=== PATIENT | male | born 2000 | race African-American/Black ===

== ENCOUNTER 2021-08-06 10:46 | Emergency (ER) | payer OTHER, SELFPAY ==
--- NOTE | 2021-08-06 11:50 | ED.MALEGU ---
HPI - Male Genitourinary General Chief complaint: Urogenital-Male Stated complaint: STD Time Seen by Provider: 08/06/21 11:50 Source: patient Mode of arrival: ambulatory Limitations: no limitations History of Present Illness HPI Narrative: 21-year-old male presented for concern of STD. He states his girlfriend was recently tested and was negative, but he states I need to be tested. Currently denies any urethral discharge, lesions, or pain with urinating. Patient declines treatment at this time. Related Data Allergies Allergy/AdvReac Type Severity Reaction Status Date / Time No Known Allergies Allergy Verified 08/06/21 10:56 Review of Systems Review of Systems: CONSTITUTIONAL: Denies body aches, fever, chills, or sweats. CARDIOVASCULAR: Denies chest pain, palpitations, or edema. RESPIRATORY: Denies cough or dyspnea. GASTROINTESTINAL: Denies abdominal pain, nausea, vomiting, or diarrhea. GENITOURINARY: Denies urethral discharge, dysuria, frequency, urgency, hematuria, flank pain SKIN: Denies rash, itching, or wounds. MUSCULOSKELETAL: Denies back pain or myalgia. PMFSH Comments At time of signature, I have reviewed and agree with nursing past medical, surgical, social and family history unless otherwise noted. Please see nursing chart for further information. There is no relevant family history pertinent to the presenting complaint Exam Narrative: GENERAL: Well-appearing and in no acute distress. HEAD: Normocephalic EYES: EOMI. . ENT: Mucous membranes pink and moist. NECK: Normal AROM. Supple. CHEST: No respiratory distress. Clear to auscultation. HEART: Regular rate and rhythm. ABDOMEN: Soft, nontender, nondistended, normal active bowel sounds. No CVA tenderness MUSCULOSKELETAL: No bony tenderness. SKIN: Warm, dry, no rash. NEURO: No focal deficits. Alert and oriented x3. Gait steady. PSYCH: Normal affect. Course Course Emergency Course: Pt is advised we will send urine for gonorrhea, chlamydia, and trich, pt understands and agrees to treatment plan. Declines antibiotic treatment at this time and is aware he will need to return for antibiotic if positive. Anticipatory guidance given. Patient agrees to follow-up as directed and is aware of reasons to seek care at the emergency department. Portions of this record may have been created with voice recognition software Level of Care: Express Care Visit Vital Signs Vital signs: Reviewed MDM - Male Genitourinary MDM Narrative Medical decision making narrative: Exam findings show no acute concerns; patient is non-toxic appearing and is in no distress. Patient is appropriate for outpatient treatment and follow-up. Lab Data Labs: Lab Results 08/06/21 08/06/21 Range/Units 11:05 11:06 C.trachomatis RNA (TMA) Pending N.gonorrhoeae RNA (TMA) Pending T. vaginalis Amp RNA Pending Discharge Plan Discharge Clinical Impression: Concern about STD in male without diagnosis Patient Disposition: Home, Self-Care Condition: Stable Instructions: Antibiotic Form, Sexually Transmitted Diseases (ED), Safe Sex Practices (ED) Additional Instructions: Your urine sample has been sent off to test for gonorrhea, chlamydia, and trichomonas infections. You will be called if any of your tests come back positive. These tests can take up to 5-7 days to come back. If your tests come back positive you will need to return for antibiotic treatment, and you will need to notify any partners that you have so they can be tested and treated. To avoid reinfection, you are advised to abstain from sexual intercourse until you and sexual partners have been treated (ie, after completing the 7-day antibiotic regimen, and any symptoms have resolved. If your tests come back negative and you begin experiencing symptoms, please follow-up with your PCP or urologist for further evaluation and treatment. If your symptoms worsen to include fever, abdominal pain, or back
== END 2021-08-06 12:04 | disposition home or self-care (01) ==
PROVIDERS: Emergency Provider Nurse Practitioner Family
DX: Z11.3 Encounter for screening for infections with a predominantly sexual mode of transmission (principal)
CPT/HCPCS: 87491; 87591; 87661; 99213; G0463

== ENCOUNTER 2023-05-11 19:54 | Emergency (ER) | payer OTHER, SELFPAY ==
--- NOTE | ~2023-05-11 | CT_ITS ---
EXAMINATION: CT abdomen pelvis w con DATE: 05/11/2023 23:01 INDICATION: Abdominal pain. TECHNIQUE: Computed tomography (CT) of the abdomen and pelvis was performed with 100 mL Omnipaque 350 intravenous contrast. Automated exposure control and iterative reconstruction technique were employe d. The dose-length product was 373.46 mGy-cm. COMPARISON: None. FINDINGS: The visualized portions of the lung bases are clear without pneumonia or pleural effusion. The heart size is normal. No pericardial effusion. The liver, gallbladder, spleen, pancreas, adrenal glands, and right kidney are normal. There is a 19 mm cyst in left kidney. There are no dilated loops of bowel. The appendix is normal. There are no pathologically enlarged lymph nodes. There is trace p elvic ascites. There is mild lumbar spondylosis. IMPRESSION: 1. No etiology for the patient's symptoms. Reviewed, dictated and finalized at location E. [facility]
[2023-05-11 20:00] VITALS: BP 138/85; PULSE 81; RESP 17; TEMP 36.7; O2SAT 100
[2023-05-11 20:14] LABS: Basophils Percent Auto 0.4 % (0.2-1.2); Eosinophils Absolute Auto 0.1 K/mm3 (0-0.3); Eosinophils Percent Auto 1.6 % (0-4.4); Hematocrit 28.4 % (42.0-52.0); Hemoglobin 8.7 g/dL (14.0-18.0); Immature Granulocyte Absolute 0.01 K/mm3 (0.00-0.031); Immature Granulocyte Percent A 0.1 % (0-0.5); Lymphocytes Absolute Auto 2.12 K/mm3 (0.9-3.2); Lymphocytes Percent Auto 30.6 % (18.3-44.2); Mean Corpuscular HGB Conc 30.6 g/dl (32-36); Mean Corpuscular Hemoglobin 23.6 pg (26-34); Monocytes Absolute Auto 0.6 K/mm3 (0.1-0.6); Monocytes Percent Auto 8.1 % (2.6-8.5); Neutrophils Absolute Auto 4.1 K/mm3 (1.3-6.7); Neutrophils Percent Auto 59.2 % (45.5-73.1); Platelet Count Result 316 k/mm3 (150-375); Red Blood Count 3.69 M/mm3 (4.6-6.20); Red Cell Distribution Width 15.4 % (11.5-14.5); White Blood Count 6.9 K/mm3 (4.5-10.0)
[2023-05-11 20:22] LABS: Appearance Urine Clear (Clear); Bilirubin Urine Negative (Negative); Blood Urine Negative (Negative); Color Urine Yellow (Yellow); Glucose Urine UA Negative (Negative); Ketones Urine Trace mg/dL (Negative); Leukocyte Esterase Ur Negative LEU/UL (Negative); Nitrate Urine Negative (Negative); Protein Urine Negative (Negative); Specific Grav Ur 1.023 (1.001-1.035)
[2023-05-11 20:24] LABS: Alanine Aminotransferase 18 U/L (6-50); Albumin Level 4.3 g/dL (3.5-5.1); Alkaline Phosphatase 68 U/L (38-126); Anion Gap 9 mmol/L (8-16); Aspartate Amino Transferase 34 U/L (17-59); Bilirubin,Total 0.5 mg/dL (0.2-1.3); Blood Urea Nitrogen 11 mg/dL (9-20); Calcium 9.1 mg/dL (8.4-10.2); Carbon Dioxide 27 mmol/L (22-30); Chloride 104 mmol/L (98-107); Estimated CRCL calculation 129 ml/min; Estimated Glomerular Filt Rate > 60; Glucose 111 mg/dL (65-110); Lipase 127 U/L (23-300); Potassium 3.4 mmol/L (3.4-5.0); Sodium 140 mmol/L (137-145)
[2023-05-11 20:41] LABS: Add Urine Microscopic? NO
[2023-05-11 21:37] VITALS: BP 132/91; PULSE 67; RESP 16; O2SAT 100
--- NOTE | 2023-05-11 23:00 | ED.GENADULT ---
HPI - General Adult General Chief complaint: Abdominal Pain Stated complaint: abd pain Time Seen by Provider: 05/11/23 21:59 History of Present Illness HPI narrative: Patient a 23-year-old gentleman who presents the emergency department with chief complaint of abdominal pain. Patient reports that for over a month he has been having pain in his abdomen. The patient states that the pain is a aching-like pain the patient reports the pain is doing better since he is arrived in the emergency department he also reports that he has had some black stools patient denies bright red blood per rectum. Patient reports he is on no blood thinners denies being on aspirin patient states he had a normal colored bowel movement today. Related Data Allergies Allergy/AdvReac Type Severity Reaction Status Date / Time No Known Allergies Allergy Verified 05/11/23 19:54 Review of Systems Review of Systems: A 10 system review of systems was completed on the patient and is negative except for what is stated in the HPI. Nursing and ancillary documentation was reviewed. Exam Narrative: GENERAL: Well-appearing, well-nourished, and in no acute distress. HEAD: Normocephalic, atraumatic. EYES: PERRLA and EOMI. ENT: Nares clear, no rhinorrhea or epistaxis. Mucous membranes moist. NECK: Supple. CHEST: Clear to auscultation. No respiratory distress. HEART: Regular rate and rhythm. No murmur heard. Normal peripheral pulses. ABDOMEN: Soft, nontender, nondistended, normal active bowel sounds. : Guaiac negative stool EXTREMITIES: Normal range of motion. No edema. SKIN: Warm, dry, no rash. NEURO: No focal deficits. Alert and oriented x3. PSYCH: Normal mood and affect. Course Vital Signs Vital signs: Vital Signs Temperature 36.7 C 05/11/23 20:00 Pulse Rate 81 05/11/23 20:00 Respiratory Rate 17 05/11/23 20:00 Blood Pressure 138/85 05/11/23 20:00 Pulse Oximetry 100 05/11/23 20:00 Oxygen Delivery Room Air 05/11/23 20:00 Temperature 36.7 C 05/11/23 20:00 Pulse Rate 74 05/11/23 23:48 Respiratory Rate 18 05/11/23 23:48 Blood Pressure 145/86 H 05/11/23 23:48 Pulse Oximetry 100 05/11/23 23:48 Oxygen Delivery Room Air 05/11/23 20:00 Medical Decision Making MDM Narrative Medical decision making narrative: Differential diagnosis includes GI bleed, diverticulitis, colitis Laboratory studies were obtained which showed a normal white blood cell count of 6.9 hemoglobin was low at 8.7 no previous hemoglobins are in the system. Patient has a normal platelet count at 316 electrolytes are within normal limits lipase is normal Vital Signs Vital Signs: Vital Signs Temperature 36.7 C 05/11/23 20:00 Pulse Rate 81 05/11/23 20:00 Respiratory Rate 17 05/11/23 20:00 Blood Pressure 138/85 05/11/23 20:00 Pulse Oximetry 100 05/11/23 20:00 Oxygen Delivery Room Air 05/11/23 20:00 Temperature 36.7 C 05/11/23 20:00 Pulse Rate 74 05/11/23 23:48 Respiratory Rate 18 05/11/23 23:48 Blood Pressure 145/86 H 05/11/23 23:48 Pulse Oximetry 100 05/11/23 23:48 Oxygen Delivery Room Air 05/11/23 20:00 Lab Data 05/11/23 20:07 05/11/23 20:07 Labs: Lab Results 05/11/23 05/11/23 Range/Units 20:07 20:14 WBC 6.9 (4.5-10.0) K/mm3 RBC 3.69 L (4.6-6.20) M/mm3 Hgb 8.7 L (14.0-18.0) g/dL Hct 28.4 L (42.0-52.0) % MCV 77.0 L (80-100) fl MCH 23.6 L (26-34) pg MCHC 30.6 L (32-36) g/dl RDW 15.4 H (11.5-14.5) % Plt Count 316 (150-375) k/mm3 MPV 9.0 (7.4-10.4) fl Immature Gran % (Auto) 0.1 (0-0.5) % Neut % (Auto) 59.2 (45.5-73.1) % Lymph % (Auto) 30.6 (18.3-44.2) % [place] % (Auto) 8.1 (2.6-8.5) % Eos % (Auto) 1.6 (0-4.4) % Baso % (Auto) 0.4 (0.2-1.2) % Lymph # (Auto) 2.12 (0.9-3.2) K/mm3 [place] # (Auto) 0.6 (0.1-0.6) K/mm3 Eos # (Auto) 0.1 (0-0.3) K/mm3 Baso # (Auto) 0.0 (0.
[2023-05-11 23:48] VITALS: BP 145/86; PULSE 74; RESP 18; O2SAT 100
== END 2023-05-12 00:12 | disposition home or self-care (01) ==
PROVIDERS: Emergency Medicine; Emergency Provider Emergency Medicine
DX: R10.9 Unspecified abdominal pain (principal); D64.9 Anemia, unspecified; Z79.82 Long term (current) use of aspirin
CPT/HCPCS: 36415; 74177; 80053; 81003; 83690; 85025; 99284; Q9967

== ENCOUNTER 2024-03-19 00:02 | Emergency (ER) | payer BC, SELFPAY ==
[2024-03-19] VITALS (24 sets, daily range): BP systolic 129–150; BP diastolic 65–86; PULSE 75–90; RESP 13–25; TEMP 36.7–37.2; O2SAT 99–100
--- NOTE | ~2024-03-19 | CT_ITS ---
Clinical Indication: Chest pain, elevated lipase CT Scan of the Chest, Abdomen, and Pelvis with Contrast: Technique: Contiguous sections were acquired throughout the chest, abdomen, and pelvis after intraven ous administration of 100 cc of Omnipaque 350. Dose reduction technique was used on this scan by juancarlos escobedo automated exposure control and iterative reconstruction technique. The dose-length product (DL P) was 453.37 mGy-cm. COMPARISON: 05/11/2023 Findings: There is no evidence of any significant mediastinal, hilar or axillary lymphadenopathy. The mediastin al soft tissues and vascular structures appear normal. There is no evidence of pleural or pericardial effusion. The lungs are clear. No pulmonary nodules or infiltrates are noted. The liver, spleen, pancreas, gallbladder, adrenals and right kidney are within normal limits. 2.2 cm hypodense left renal lesion is of higher density than typical simple cyst. No evidence of aortic aneu rysm. No lymphadenopathy. No bowel obstruction or bowel wall thickening. There is no evidence to suggest acute appendicitis. Urinary bladder is unremarkable. No pelvic mass seen. No ascites. Impression: 2.2 cm renal lesion, slightly higher density than typical cyst. This could reflect solid lesion versu s early complication cyst. Recommend ultrasound to further evaluate for cystic versus solid lesion. No acute abnormality. Reviewed, dictated and finalized at location . Impression: 2.2 cm renal lesion, slightly higher density than typical cyst. This could refl ect solid lesion versus early complication cyst. Recommend ultrasound to furthe r evaluate for cystic versus solid lesion. No acute abnormality.
--- NOTE | ~2024-03-19 | XR_ITS ---
Clinical Indication: Chest pain PA and lateral views of the chest: Comparison: None Findings: The lungs are clear, without evidence of focal consolidation or pleural effusion. Cardiome diastinal silhouette is within normal limits. Bones and soft tissues are unremarkable. Impression: Normal chest. Reviewed, dictated and finalized at location . Impression: Normal chest.
--- NOTE | 2024-03-19 00:05 | ECG_ITS ---
Test Date: 2024-03-19 00:10:08 Measurements Intervals [place] Rate: 78 P: 63 TX: 177 QRS: 45 QRSD: 98 T: 53 QT: 360 QTc: 411 Interpretive Statements SINUS RHYTHM WITH SINUS ARRHYTHMIA DELAYED PRECORDIAL R/S TRANSITION ST ELEVATION IN ANTERIOR LEADS, PROBABLY EARLY REPOLARIZATION BASELINE ARTIFACT- I, II, III, AVR, AVL, AVF BORDERLINE ECG No previous ECG available for comparison Electronically Signed On 03-19-2024 06:32:10 CDT by Ata Wilson D.O.
[2024-03-19 00:25] LABS: Basophils Percent Auto 0.3 % (0.2-1.2); Eosinophils Absolute Auto 0.1 K/mm3 (0-0.3); Eosinophils Percent Auto 1.2 % (0-4.4); Hematocrit 25.8 % (42.0-52.0); Hemoglobin 8.2 g/dL (14.0-18.0); Immature Granulocyte Absolute 0.02 K/mm3 (0.00-0.031); Immature Granulocyte Percent A 0.3 % (0-0.5); Lymphocytes Absolute Auto 2.44 K/mm3 (0.9-3.2); Lymphocytes Percent Auto 32.3 % (18.3-44.2); Mean Corpuscular HGB Conc 31.8 g/dl (32-36); Mean Corpuscular Hemoglobin 24.8 pg (26-34); Mean Corpuscular Volume 77.9 fl (80-100); Mean Platelet Volume 9.2 fl (7.4-10.4); Monocytes Absolute Auto 0.7 K/mm3 (0.1-0.6); Monocytes Percent Auto 9.8 % (2.6-8.5); Neutrophils Absolute Auto 4.2 K/mm3 (1.3-6.7); Neutrophils Percent Auto 56.1 % (45.5-73.1); Platelet Count Result 234 k/mm3 (150-375); Red Blood Count 3.31 M/mm3 (4.6-6.20); Red Cell Distribution Width 17.4 % (11.5-14.5); White Blood Count 7.6 K/mm3 (4.5-10.0)
[2024-03-19 00:35] LABS: Alanine Aminotransferase 18 U/L (6-50); Albumin Level 4.2 g/dL (3.5-5.1); Alkaline Phosphatase 62 U/L (38-126); Anion Gap 7 mmol/L (4-12); Aspartate Amino Transferase 40 U/L (17-59); Bilirubin,Total 0.4 mg/dL (0.2-1.3); Blood Urea Nitrogen 12 mg/dL (9-20); Carbon Dioxide 29 mmol/L (22-30); Chloride 100 mmol/L (98-107); Estimated CRCL calculation 112 ml/min; Estimated Glomerular Filt Rate > 60; Glucose 120 mg/dL (65-110); Lipase 789 U/L (23-300); Potassium 3.6 mmol/L (3.4-5.0); Sodium 136 mmol/L (137-145)
[2024-03-19 00:36] LABS: INR 1.1; Prothrombin Time 14.3 Seconds (11.1-14.7)
[2024-03-19 00:37] LABS: Partial Thromboplastin Time 23.7 Seconds (22.3-36.8)
[2024-03-19 00:47] LABS: Troponin I < 0.012 ng/mL (0.000-0.034)
--- NOTE | 2024-03-19 01:39 | ED.CHESTPAIN ---
HPI - Chest Pain General Chief Complaint: Chest Pain Stated Complaint: chest pain Time Seen by Provider: 03/19/24 00:27 History of Present Illness HPI narrative: Patient was at work and felt slight chest pain, started feeling anxious, wanted to get checked out. Initially thought it may be heartburn or gas. Currently denying any symptoms. No nausea vomiting, no recent cough. Also occasionally lightheaded. Related Data Allergies Allergy/AdvReac Type Severity Reaction Status Date / Time No Known Allergies Allergy Verified 05/11/23 19:54 Review of Systems Review of Systems: All systems reviewed & are unremarkable except as noted in HPI and below Exam Narrative: EXAMINATION OF ORGAN SYSTEMS/BODY AREAS: Constitutional: Vital signs per nursing GENERAL:[No acute distress, non-toxic appearing.] HEAD: Normal with no signs of head trauma. EYES: EOMI, conjunctiva normal ENT: Hearing grossly intact LUNGS: Nonlabored breathing. Clear to auscultation bilaterally HEART: [Regular rate and rhythm] ABD: [Soft], [nontender to palpation] EXT: Normal range of motion SKIN: [No rashes or lesions.] NEURO: [Alert and oriented x 3. No gross focal sensory or strength deficits.] PSYCH: Normal affect Course Vital Signs Vital signs: Vital Signs Temperature 98.0 F 03/19/24 00:08 Pulse Rate 80 03/19/24 00:08 Respiratory Rate 18 03/19/24 00:08 Blood Pressure 137/84 03/19/24 00:08 Pulse Oximetry 100 03/19/24 00:08 Oxygen Delivery Room Air 03/19/24 00:08 Temperature 98.9 F 03/19/24 03:15 Pulse Rate 87 03/19/24 03:15 Respiratory Rate 23 H 03/19/24 03:15 Blood Pressure 150/74 H 03/19/24 03:15 Pulse Oximetry 100 03/19/24 03:15 Oxygen Delivery Room Air 03/19/24 00:08 MDM - Chest Pain MDM Narrative Medical decision making narrative: ED COURSE AND MEDICAL DECISION MAKIN-year-old male presenting with chest pain. EKG done in triage negative for acute ischemic changes. Cardiac workup is initiated. EKG: Performed in triage and interpreted by me. Normal sinus rhythm. Rate 78. Normal axis. [place] normal. QRS duration normal. QTc normal. No pathologic Q waves. No ST segment elevation or depression to suggest acute ischemia. No RV strain pattern. HEART score is 0 with no acute ischemic changes on EKG and negative troponin making ACS unlikely. Negative PERC making PE unlikely. Presentation not consistent with dissection or aneurysm without radiation of pain or pulse deficits. CXR negative for mediastinal widening. No abdominal pain or signs of sepsis that would be concerning for esophageal perforation or mediastinitis. No cardiomegaly or JVD to suggest pericardial effusion/tamponade. Labs within normal limits, chest x-ray my independent interpretation appears clear without signs of pneumothorax or consolidation. Lipase is elevated. He denies any history of heavy drinking or gallstones, will obtain CT. Patient at this time would like to go home. Understands risks of leaving without finishing treatment but he would like to get his CT and follow-up lab results later. Denies any symptoms currently so I feel this seems reasonable. On repeat evaluation just prior to discharge, the patient is no acute distress. I had a long discussion with the patient and with shared decision making, [he] is comfortable with outpatient management. [He] was given clear return instructions by myself in person as well as on discharge paperwork. CT returned is normal. I did call/leave a message. Lab Data 03/19/24 00:21 03/19/24 00:21 Labs: Lab Results 03/19/24 Range/Units 00:21 WBC 7.6 (4.5-10.0) K/mm3 RBC 3.31 L (4.6-6.20) M/mm3 Hgb 8.2 L (14.0-18.0) g/dL Hct 25.8 L (42.0-52.0) % MCV 77.9 L (80-100) fl MCH 24.8 L (26-34) pg MCHC 31.8 L (32-36) g/dl RDW 17.4 H (11.5-14.5) % Plt Count 234 (150-375) k/mm3 MPV 9.2 (7.4-10.4) fl Immature Gran % (Auto) 0.3
== END 2024-03-19 03:15 | disposition home or self-care (01) ==
PROVIDERS: Emergency Provider Emergency Medicine
DX: R07.89 Other chest pain (principal); D64.9 Anemia, unspecified; R74.8 Abnormal levels of other serum enzymes
CPT/HCPCS: 36415; 71046; 71260; 74177; 80053; 83690; 84484; 85025; 85610; 85730; 93005; 99284; Q9967